=== PATIENT | male | born 1990 | race Caucasian/White ===

== ENCOUNTER 2017-10-02 09:38 | Emergency (ER) | payer BC ==
[~2017-10-02] VITALS: Ht 177.8 cm; Wt 99.8 kg
[2017-10-02 09:45] VITALS: BP_SYST 144
[2017-10-02] MEDS ORDERED: IBUPROFEN 800 MG TABLET PO ONE (10:30)
[2017-10-02 11:00] VITALS: BP_SYST 144
== END 2017-10-02 11:00 | disposition home or self-care (01) ==
LOC: SED 09:38
DX: S69.81XA Other specified injuries of right wrist, hand and finger(s), initial encounter (principal); M79.641 Pain in right hand; Y04.0XXA Assault by unarmed brawl or fight, initial encounter; Y93.89 Activity, other specified; Y92.89 Other specified places as the place of occurrence of the external cause; Y99.8 Other external cause status
CPT/HCPCS: 99284